=== PATIENT | male | born 2005 | race Caucasian/White ===

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

== ENCOUNTER 2023-12-03 11:09 | Emergency (ER) | payer OTHER ==
[2023-12-03] MEDS: Lidocaine 2% 5 ML SDV INJECT ONE (11:45)
[2023-12-03] MEDS: Diphtheria,Pertussis(Acell),Tetanus Vaccine 0.5 ML Syringe IM ONE (11:50)
== END 2023-12-03 12:00 | disposition home or self-care (01) ==
LOC: LB.ED 11:09
DX: S61.210A Laceration without foreign body of right index finger without damage to nail, initial encounter (principal); Z88.1 Allergy status to other antibiotic agents; W26.0XXA Contact with knife, initial encounter
CPT/HCPCS: 12001; 90471; 90715; 99283-25